=== PATIENT | female | born 1995 | race Caucasian/White ===

== ENCOUNTER 2022-05-31 13:21 | Inpatient (IN) ==
[2022-05-31] MEDS ORDERED: OXYTOCIN/LR 20 UNIT/1,000 ML BAG IV ONE (14:07)
[2022-05-31] MEDS ORDERED: METHYLERGONOVINE 0.2 MG/1 ML AMP IM PRN (14:07)
[2022-05-31] MEDS ORDERED: TRANEXAMIC ACID 1,000 MG in SODIUM CHLORIDE 0.9% 100 ML IV PRN (14:07)
[2022-05-31] MEDS ORDERED: ONDANSETRON 4 MG/2 ML VIAL IV PRN (14:07)
[2022-05-31] MEDS ORDERED: CARBOPROST TROMETHAMINE 250 MCG/ML AMP IM PRN (14:07)
[2022-05-31] MEDS ORDERED: LACTATED RINGERS 1,000 ML IV ONE (14:07)
[2022-05-31] MEDS ORDERED: miSOPROStoL 200 MCG TABLET RECTAL PRN (14:07)
[2022-05-31] MEDS ORDERED: ePHEDrine 50 MG/ML VIAL IV PRN (14:10)
[2022-05-31] MEDS ORDERED: NALOXONE 0.4 MG/ML VIAL IV PRN (14:10)
[2022-05-31] MEDS ORDERED: diphenhydrAMINE 50 MG/1 ML VIAL IV PRN ×2 (14:10)
[2022-05-31] MEDS ORDERED: ONDANSETRON 4 MG/2 ML VIAL IV ONE (14:10)
[2022-05-31] MEDS ORDERED: CITRIC ACID/SODIUM CITRATE 30 ML UDCUP PO ONE (14:10)
[2022-05-31] MEDS ORDERED: PROMETHAZINE 25 MG/1 ML VIAL IM ONE (14:10)
[2022-05-31] MEDS ORDERED: FAMOTIDINE 20 MG/2 ML VIAL IV ONE (14:10)
[2022-05-31] MEDS ORDERED: hydrOXYzine HCL 25 MG/1 ML VIAL IM PRN (14:10)
[2022-05-31 14:27] LABS: Basophils % 0.2 % (0.0-0.8); Eosinophils % 0.2 % (0.00-10.9); Hematocrit 33.7 VOL% (35.7-47.0); Hemoglobin 11.3 GM/DL (12.0-16.0); Immature Granulocytes % 0.5 %; Immature Granulocytes Absolute 0.07 #; Lymphocytes # 1.5 10*3/uL (1.4-4.0); Lymphocytes % 11.2 % (21.3-54.2); Mean Corpuscular HGB Conc 33.5 GM/DL (32-36); Mean Corpuscular Volume 87.8 FL (87-102); Mean Platelet Volume 10.2 FL (9.6-12.0); Monocytes # 0.7 10*3/uL (0.11-0.8); Monocytes % 5.1 % (1.7-12.7); Neutrophils % 82.8 % (38.7-73.9); Platelet Count 194 T/CUMM (130-400); Red Blood Count 3.84 MC/CUMM (3.8-5.5); Red Cell Distribution Width 13.3 % (9.3-17.3); White Blood Count 13.4 T/CUMM (4-12)
[2022-05-31] MEDS ORDERED: OXYTOCIN/LR 20 UNIT/1,000 ML BAG IV SCH (14:30)
[2022-05-31] MEDS: LACTATED RINGERS 1,000 ML IV SCH ×2 (15:04→22:32)
[2022-05-31] MEDS: fentaNYL 2 MCG/ROPIV 0.2% EPID 100 ML EPIDURAL SCH ×2 (15:11→22:26)
[2022-05-31 15:47] LABS: Bilirubin,Urine Negative (Negative); Blood, Urine Large mg/dL (Negative); Glucose,Urine (UA) Negative (Negative); Ketones,Urine Negative (Negative); Nitrite,Urine Negative (Negative); Protein,Urine Negative (Negative); Urine Appearance Clear (Clear); Urine Color Yellow (Yellow); Urine Specific Gravity 1.015 (1.001-1.035); Urine Urobilinogen 0.2 eU/dL (<2.0)
[2022-05-31 15:50] LABS: Mucus,Urine Occasional /LPF (Occasional); RBC,Urine 78 /HPF (0-4); Squamous Epithelial Cell,Urine Few /HPF (0-10)
[2022-05-31 17:59] LABS: Bilirubin,Urine Negative (Negative); Blood, Urine Trace mg/dL (Negative); Glucose,Urine (UA) Negative (Negative); Ketones,Urine Negative (Negative); Nitrite,Urine Negative (Negative); Protein,Urine Negative (Negative); Urine Appearance Clear (Clear); Urine Color Yellow (Yellow); Urine Specific Gravity 1.015 (1.001-1.035); Urine Urobilinogen 0.2 eU/dL (<2.0); Urine pH 6.5 (4.5-8.0)
[2022-05-31 18:03] LABS: Mucus,Urine Occasional /LPF (Occasional); RBC,Urine 1 /HPF (0-4); Squamous Epithelial Cell,Urine Occasional /HPF (0-10); Transitional Epi Cells,Urine Occasional /HPF (<1)
[2022-05-31] MEDS ORDERED: ACETAMINOPHEN 500 MG TABLET PO PRN (22:27)
[2022-06-01] MEDS ORDERED: SODIUM CHLORIDE 0.9% 0 ML IV ONE (01:24)
[2022-06-01] MEDS ORDERED: miSOPROStoL 200 MCG TABLET ONE (01:24)
[2022-06-01] MEDS ORDERED: TRANEXAMIC ACID 1,000 MG/10 ML VIAL ONE (01:24)
[2022-06-01] MEDS ORDERED: OXYTOCIN/LR 20 UNIT/1,000 ML BAG IV ONE ×2 (01:24→03:26)
[2022-06-01] MEDS ORDERED: METHYLERGONOVINE 0.2 MG/1 ML AMP ONE (01:25)
[2022-06-01] MEDS ORDERED: CARBOPROST TROMETHAMINE 250 MCG/ML AMP IM ONE (01:25)
[2022-06-01 03:10] LABS: Cord Venous Blood HCO3 19.2 MMOL/L; Cord Venous Blood PO2 30.8
[2022-06-01 03:11] LABS: Cord Arterial Blood HCO3 16.4 MMOL/L
[2022-06-01] MEDS ORDERED: FAMOTIDINE 20 MG/2 ML VIAL IV ONE (03:16)
[2022-06-01] MEDS ORDERED: oxyCODONE/ACETAMINOPHEN 5-325 MG TABLET PO PRN (03:26)
[2022-06-01] MEDS ORDERED: RHO(D) IMMUNE GLOBULIN 300 MCG SYRINGE IM ONE (03:26)
[2022-06-01] MEDS ORDERED: MEASLES/MUMPS/RUBELLA VACCINE 0.5 ML VIAL SUBCUT ONE (03:26)
[2022-06-01] MEDS ORDERED: LANOLIN 50% CREAM 0.3 OZ TUBE TOP PRN (03:26)
[2022-06-01] MEDS ORDERED: BENZOCAINE 20%/MENTHOL 0.5% SPRAY 56 GM CAN TOP PRN (03:26)
[2022-06-01] MEDS ORDERED: WITCH HAZEL PADS 100/JAR TOP PRN (03:26)
[2022-06-01] MEDS ORDERED: HYDROCORTISONE 2.5% RECTAL CREAM 30 GM TUBE TOP PRN (03:26)
[2022-06-01] MEDS ORDERED: ACETAMINOPHEN 325 MG TABLET PO PRN (03:26)
[2022-06-01] MEDS ORDERED: BISACODYL 10 MG SUPP RECTAL PRN (03:26)
[2022-06-01] MEDS ORDERED: DIPH/TET/ACEL PERT BOOSTER VACCINE 0.5 ML VIAL IM ONE (03:26)
[2022-06-01] MEDS ORDERED: ONDANSETRON 4 MG/2 ML VIAL IV PRN (03:26)
[2022-06-01] MEDS: IBUPROFEN 800 MG TABLET PO PRN ×2 (05:08→16:33)
[2022-06-01] MEDS: DOCUSATE SODIUM 100 MG CAPSULE PO SCH ×2 (08:46→21:01)
[2022-06-01] MEDS: oxyCODONE/ACETAMINOPHEN 5-325 MG TABLET PO PRN ×2 (08:48→18:07)
[2022-06-01 09:40] LABS: Basophils % 0.2 % (0.0-0.8); Eosinophils % 0.1 % (0.00-10.9); Hematocrit 28.2 VOL% (35.7-47.0); Hemoglobin 9.4 GM/DL (12.0-16.0); Immature Granulocytes % 0.9 %; Immature Granulocytes Absolute 0.15 #; Lymphocytes # 1.4 10*3/uL (1.4-4.0); Lymphocytes % 8.7 % (21.3-54.2); Mean Corpuscular HGB Conc 33.3 GM/DL (32-36); Monocytes # 0.6 10*3/uL (0.11-0.8); Monocytes % 3.8 % (1.7-12.7); Neutrophils % 86.3 % (38.7-73.9); Platelet Count 168 T/CUMM (130-400); Red Blood Count 3.17 MC/CUMM (3.8-5.5); Red Cell Distribution Width 13.4 % (9.3-17.3); White Blood Count 16.5 T/CUMM (4-12)
[2022-06-02] MEDS: oxyCODONE/ACETAMINOPHEN 5-325 MG TABLET PO PRN ×2 (08:16→20:46)
[2022-06-02] MEDS: DOCUSATE SODIUM 100 MG CAPSULE PO SCH ×2 (08:19→20:47)
[2022-06-02] MEDS ORDERED: KETOROLAC 30 MG/1 ML VIAL IM ONE (09:05)
[2022-06-02] MEDS: NEOMYCIN/POLYMYXIN/BACITRACIN OINT 0.9 GM PACK TOP SCH (23:00)
[2022-06-03] MEDS: oxyCODONE/ACETAMINOPHEN 5-325 MG TABLET PO PRN (08:31)
[2022-06-03] MEDS: DOCUSATE SODIUM 100 MG CAPSULE PO SCH (08:31)
[2022-06-03] MEDS: NEOMYCIN/POLYMYXIN/BACITRACIN OINT 0.9 GM PACK TOP SCH (08:32)
[2022-06-03] MEDS ORDERED: NEOMYCIN/POLYMYXIN/BACITRACIN OINT 0.9 GM PACK TOP SCH (09:00)
[2022-06-03 13:06] VITALS: BP 136/87
[2022-06-03] MEDS ORDERED: DIPH/TET/ACEL PERT BOOSTER VACCINE 0.5 ML VIAL IM ONE (13:29)
== END 2022-06-03 15:15 | disposition home or self-care (01) | DRG 560 ==
LOC: N.LDOUT 13:21 → N.LD 13:23 → N.OB 06-01 05:20
PROVIDERS: ADMIT Student in an Organized Health Care Education/Training Program; ATTEND Student in an Organized Health Care Education/Training Program